=== PATIENT | female | born 1955 | race Caucasian/White ===

== ENCOUNTER 2022-02-24 09:35 | Emergency (ER) | payer OTHER, MEDICAID ==
[~2022-02-24] VITALS: Ht 165.1 cm; Wt 63.5 kg
[~2022-02-24 09:35] MED LIST: AMOX-426 PO; ASCO500T20 PO; DOCU250C14 PO; GUAI600T45 PO; LACT1CAP79 PO; MULT-300 PO; VITD2000 PO
[2022-02-24 10:00] VITALS: BP_SYST 144
[2022-02-24] MEDS ORDERED: DIPHTH,PERTUSS(ACELL),TET VAC 0.5 ML VIAL (Tdap) I.M. ONE (10:30)
[2022-02-24] MEDS ORDERED: ACETAMINOPHEN 500 MG TABLET PO ONE (11:00)
[2022-02-24] MEDS ORDERED: HYDROcodone/ACETAMIN 5-325 MG TAB (NORCO/ VICODIN) PO ONE (12:15)
[2022-02-24 12:30] VITALS: BP_SYST 150
== END 2022-02-24 12:32 | disposition home or self-care (01) ==
LOC: SED 09:35
DX: S01.01XA Laceration without foreign body of scalp, initial encounter (principal); R42 Dizziness and giddiness; R51.9 Headache, unspecified; Z79.899 Other long term (current) drug therapy; W22.8XXA Striking against or struck by other objects, initial encounter; Y93.89 Activity, other specified; Y92.094 Garage of other non-institutional residence as the place of occurrence of the external cause; Y99.8 Other external cause status
CPT/HCPCS: 70450-TC; 72125-TC; 76376; 82962; 90715; 99284